=== PATIENT | male | born 1955 | race African-American/Black ===

== ENCOUNTER 2017-09-20 12:51 | Emergency (ER) | payer OTHER ==
[~2017-09-20] VITALS: Ht 182.9 cm; Wt 126.1 kg
--- NOTE | 2017-09-20 13:10 | EKG ---
[address] [address] Test Date: 2017-09-20 Test Time: 13:05:26 Pat Name: AARON KIM Department: Room: Gender: M [employer]: : 1955 Requested By: GARRY RUFFIN Order Number: [id number] Reading MD: Ephraim Thompson MD Measurements Intervals [place] Rate: 74 P: 56 ND: 180 QRS: 21 QRSD: 86 T: 20 QT: 410 QTc: 461 Interpretive Statements SINUS RHYTHM QRS(T) CONTOUR ABNORMALITY CONSISTENT WITH INFERIOR INFARCT PROBABLY OLD ST & T ABNORMALITY, CONSIDER RECENT HIGH LATERAL MYOCARDIAL OR PERICARDIAL DAMAGE Electronically Signed On 09-21-2017 10:19:29 CDT by Ephraim Thompson MD
--- NOTE | 2017-09-20 13:12 | RAD ---
RS Compliance Statement: One or more of the following individualized dose reduction techniques were utilized for this examination: 1. Automated exposure control 2. Adjustment of the mA and/or kV according to patient size 3. Use of iterative reconstruction technique CT head without contrast 09/20/2017 12:54 PM INDICATION: Syncope COMPARISON: None available TECHNIQUE: Multiple axial CT images of the head were obtained from skull base through the vertex without intravenous contrast. FINDINGS: Head: Ventricles, sulci and basal cisterns are within normal limits. Low attenuation the periventricular white matter is suggestive of mild chronic small vessel ischemic changes. There is no hydrocephalus. Hopkins-white matter differentiation is normal. There is no acute intracranial hemorrhage. There is no mass, mass effect or midline shift. Posterior fossa is normal in appearance. Visualized portions of the orbits are normal. Paranasal sinuses are well aerated. Mastoid air cells are well aerated. Scalp and calvaria are normal. IMPRESSION: No acute intracranial hemorrhage. Low-attenuation in the periventricular white matter is suggestive of chronic small vessel ischemic changes. Critical results were conveyed to Dr. Mijares at 1:04 PM on 09/20/[address] Desai. Electronically signed by: Meagan Desai MD (09/20/2017 1:08 PM) [facility]
[2017-09-20] MEDS ORDERED: IV NORMAL SALINE 50ML 50 ML IV ONE (13:15)
[2017-09-20] MEDS ORDERED: ALTEPLASE IV SCH (13:15)
[2017-09-20] MEDS ORDERED: ALTEPLASE IV ONE (13:15)
--- NOTE | 2017-09-20 13:24 | RAD ---
RS Compliance Statement: One or more of the following individualized dose reduction techniques were utilized for this examination: 1. Automated exposure control 2. Adjustment of the mA and/or kV according to patient size 3. Use of iterative reconstruction technique CT cervical spine without contrast 09/20/2017 12:54 PM INDICATION: Syncope with fall. COMPARISON: None available TECHNIQUE: Multiple axial CT images of the cervical spine were obtained without intravenous contrast. Coronal and sagittal reformats are provided. FINDINGS: Alignment of the cervical spine is normal. Skull base is intact. Craniocervical junction is normal in appearance. Atlantoaxial articulation is normal. Vertebral body heights are maintained without evidence for acute fracture. There is a posterior disc osteophyte complex at C6-C7 with moderate uncovertebral joint disease and mild to moderate facet arthropathy resulting in order to severe right and moderate left neuroforaminal stenosis. There is mild spinal canal stenosis. There is to moderate disc height loss at C3-C4 and C6-C7. Mild anterior marginal osteophytosis is noted, most prominent at C6-C7. There is no prevertebral soft tissue swelling. Thyroid gland is normal in appearance. Visualized portions of the lung apices are normal without evidence for suspicious pulmonary nodule or infiltrate. IMPRESSION: No acute fracture or malalignment of the cervical spine. There is mild cervical spondylosis. Electronically signed by: Meagan Desai MD (09/20/2017 1:20 PM) [facility]
[2017-09-20 13:28] LABS: BASO # 0.2 x10^3/uL (0.0-0.2); BASO % 1 % (0-3); EOS # 0.3 x10^3/uL (0.0-0.7); EOS % 2 % (0-3); HEMATOCRIT 41.7 % (39.0-53.0); HEMOGLOBIN 14.1 g/dL (13.0-17.5); LYMPH # 1.7 x10^3/uL (1.0-4.8); LYMPH % 15 % (24-48); MEAN CORPUSCULAR HEMOGLOBIN 31 pg (25-35); MEAN CORPUSCULAR HGB CONC 34 g/dL (31-37); MEAN CORPUSCULAR VOLUME 91 fL (79-100); MONO # 0.9 x10^3/uL (0.0-1.1); MONO % 7 % (0-9); NEUT % 75 % (31-73); PLATELET COUNT 248 x10^3/uL (140-400); RED CELL DISTRIBUTION WIDTH 13.6 % (11.5-14.5)
--- NOTE | 2017-09-20 13:37 | PHYS DOC ---
Past History Past Medical History: Hypotension Smoking: Non-smoker Adult General Chief Complaint Chief Complaint: NEURO SYMPTOMS/DEFICITS HPI HPI 62-year-old male patient with history of hypertension had left facial and upper extremity numbness 3 days ago and was admitted to the [facility] with negative CT and MRI of the head. Patient was discharged home today and walked without problem. Patient was on his computer and his heard a bump at 1225 and found him unresponsive on the floor. 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 Patient stated he had loss of consciousness off and on. EMS reported that he was alert and bradycardic with heart rate of 20 to 40s with left facial droop and left upper and lower extremity weakness. Patient brought in as a code stroke to the emergency room. Patient has a slurred speech and denies chest pain and shortness of breath, nausea vomiting, headache. Review of Systems Review of Systems Constitutional: Denies fever or chills [] Eyes: Denies change in visual acuity, redness, or eye pain [] HENT: Denies nasal congestion or sore throat [] Respiratory: Denies cough or shortness of breath [] Cardiovascular: No additional information not addressed in HPI [] GI: Denies abdominal pain, nausea, vomiting, bloody stools or diarrhea [] : Denies dysuria or hematuria [] Musculoskeletal: Denies back pain or joint pain [] Integument: Denies rash or skin lesions [] Neurologic: Denies headache, reports focal weakness and sensory changes [] Endocrine: Denies polyuria or polydipsia [] All other systems were reviewed and found to be within normal limits, except as documented in this note. Current Medications Current Medications Current Medications Medications (Trade) Dose Ordered Sig/Rommel Start Time Stop Time Status Last Admin Dose Admin Alteplase, Recombinant 0 ml @ 0 mls/hr Q1H 09/20/17 13:15 09/20/17 13:17 DC Sodium Chloride 50 ml @ 0 mls/hr 1X ONCE 09/20/17 13:15 09/20/17 13:17 DC Allergies Allergies Allergies Coded Allergies Type Severity Reaction Last Updated Verified No Known Drug Allergies 09/20/17 No Physical Exam Physical Exam Constitutional: Well developed, well nourished, mild distress, non-toxic appearance. [] HENT: Normocephalic, atraumatic, oropharynx moist, no oral exudates, nose normal, left facial droop with subjective paresthesia. [] Eyes: PERRLA, EOMI, conjunctiva normal, no discharge. [] Neck: Normal range of motion, no tenderness, supple, no stridor. [] Cardiovascular:Heart rate regular rhythm, no murmur [] Lungs & Thorax: Bilateral breath sounds clear to auscultation [] Abdomen: Bowel sounds normal, soft, no tenderness, no masses, no pulsatile masses. [] Skin: Warm, dry, no erythema, no rash. [] Back: No tenderness, no CVA tenderness. [] Extremities: No tenderness, no cyanosis, no clubbing, ROM intact, no edema. [] Neurologic: Alert and oriented X 3, slurred speech with left facial and upper and lower extremity weakness, subjective paresthesias in left side, NIHS scale of 11 at arrival of patient to ER Psychologic: Affect normal, judgement normal, mood normal. [] Current Patient Data Lab Results Laboratory Tests Test 09/20/17 13:12 White Blood Count 12.0 x10^3/uL (4.0-11.0) H Red Blood Count 4.60 x10^6/uL (4.30-5.70) Hemoglobin 14.1 g/dL (13.0-17.5) Hematocrit 41.7 % (39.0-53.0) Mean Corpuscular Volume 91 fL (79-100) Mean Corpuscular Hemoglobin 31 pg (25-35) Mean Corpuscular Hemoglobin Concent 34 g/dL (31-37) Red Cell Distribution Width 13.6 % (11.5-14.5) Platelet Count 248 x10^3/uL (140-400) Neutrophils (%) (Auto) 75 % (31-73) H Lymphocytes (%) (Auto) 15 % (24-48) L Monocytes (%) (Auto) 7 % (0-9) Eosinophils (%) (Auto) 2 % (0-3) Basophils (%) (Auto) 1 % (0-3) Neutrophils # (Auto) 9.0 x10^3uL (1.8-7.7) H Lymphocytes # (Auto) 1.7 x10^3/uL (1.0-4.8) Monocytes # (Auto) 0.9 x10^3/uL (0.0-1.1) Eosinophils # (Auto) 0.3 x10^3/uL (0.0-0.7) Basophils # (Auto) 0.2 x10^3/uL (0.0-0.2) EKG EKG EKG interpreted by me. EKG at 1305 showed normal sinus rhythm at rate of 74, poor R-wave progress in anteroseptal leads, no acute ST and T-wave abnormalities [] Radiology/Procedures Radiology/Procedures [][address] [address] IMAGING REPORT Signed PATIENT: AARON KIM ACCOUNT: [id number] : 1955 LOCATION: ER AGE: 62 SEX: M EXAM STATUS: REG ER ORD. PHYSICIAN: GARRY RUFFIN MD REASON: code stroke PROCEDURE: CHEST AP ONLY CHEST AP ONLY Clinical indications: syncope, code stroke COMPARISON: None available. Findings: No acute lung infiltrate or pleural effusion or pulmonary edema or lung mass or pneumothorax is seen. The heart size, pulmonary vasculature, mediastinum and both talat are unremarkable. Impression: No acute radiographic abnormality is seen. Electronically signed by: Checo Martins MD (09/20/2017 1:42 PM) [id number] DICTATED AND SIGNED BY: CHECO MARTINS MD DATE: 09/20/17 1341 CC: GARRY RUFFIN MD; PCP,NO ~ [address] [place] [id number] IMAGING REPORT Signed PATIENT: AARON KIM ACCOUNT: [id number] : 1955 LOCATION: ER AGE: 62 SEX: M EXAM STATUS: PRE ER ORD. PHYSICIAN: GARRY RUFFIN MD REASON: SYNCOPE PROCEDURE: CT CERVICAL SPINE WO CONTRAST PQRS Compliance Statement: One or more of the following individualized dose reduction techniques were utilized for this examination: 1. Automated exposure control 2. Adjustment of the mA and/or kV according to patient size 3. Use of iterative reconstruction technique CT cervical spine without contrast 09/20/2017 12:54 PM INDICATION: Syncope with fall. COMPARISON: None available TECHNIQUE: Multiple axial CT images of the cervical spine were obtained without intravenous contrast. Coronal and sagittal reformats are provided. FINDINGS: Alignment of the cervical spine is normal. Skull base is intact. Craniocervical junction is normal in appearance. Atlantoaxial articulation is normal. Vertebral body heights are maintained without evidence for acute fracture. There is a posterior disc osteophyte complex at C6-C7 with moderate uncovertebral joint disease and mild to moderate facet arthropathy resulting in order to severe right and moderate left neuroforaminal stenosis. There is mild spinal canal stenosis. There is to moderate disc height loss at C3-C4 and C6-C7. Mild anterior marginal osteophytosis is noted, most prominent at C6-C7. There is no prevertebral soft tissue swelling. Thyroid gland is normal in appearance. Visualized portions of the lung apices are normal without evidence for suspicious pulmonary nodule or infiltrate. IMPRESSION: No acute fracture or malalignment of the cervical spine. There is mild cervical spondylosis. Electronically signed by: Lois Ahmadi MD (09/20/2017 1:20 PM) [id number] DICTATED AND SIGNED BY: LOIS AHMADI MD DATE: 09/20/17 [id number] CC: GARRY RUFFIN MD ~ [address] [address] IMAGING REPORT Signed PATIENT: AARON KIM ACCOUNT: [id number] : 1955 LOCATION: ER AGE: 62 SEX: M EXAM STATUS: PRE ER ORD. PHYSICIAN: GARRY RUFFIN MD REASON: SYNCOPE PROCEDURE: CT CODE STROKE HEAD WO PQRS Compliance Statement: One or more of the following individualized dose reduction techniques were utilized for this examination: 1. Automated exposure control 2. Adjustment of the mA and/or kV according to patient size 3. Use of iterative reconstruction technique CT head without contrast 09/20/2017 12:54 PM INDICATION: Syncope COMPARISON: None available TECHNIQUE: Multiple axial CT images of the head were obtained from skull base through the vertex without intravenous contrast. FINDINGS: Head: Ventricles, sulci and basal cisterns are within normal limits. Low attenuation the periventricular white matter is suggestive of mild chronic small vessel ischemic changes. There is no hydrocephalus. Hopkins-white matter differentiation is normal. There is no acute intracranial hemorrhage. There is no mass, mass effect or midline shift. Posterior fossa is normal in appearance. Visualized portions of the orbits are normal. Paranasal sinuses are well aerated. Mastoid air cells are well aerated. Scalp and calvaria are normal. IMPRESSION: No acute intracranial hemorrhage. Low-attenuation in the periventricular white matter is suggestive of chronic small vessel ischemic changes. Critical results were conveyed to Dr. Ruffin at 1:04 PM on 09/20/[address] Ahmadi. Electronically signed by: Lois Ahmadi MD (09/20/2017 1:08 PM) [place] [id number] DICTATED AND SIGNED BY: LOIS AHMADI MD DATE: 09/20/17 1303 CC: GARRY RUFFIN MD ~ Course & Med Decision Making Course & Med Decision Making Pertinent Labs and Imaging studies reviewed. (See chart for details) Evaluation of patient in ER showed 62-year-old male patient with history of recent TIA presented to ER with left site weakness and numbness that started at 1225. Patient had unremarkable CT had andNIH scale of 11. Patient was a candidate for TPA and after consulting Dr. Stevens on-call neurologist at 1308 planned to start TPA. BP, ended to admit patient to ICU but his requesting transferred to [facility]. on-call stroke specialist accepted patient to [facility] at 1321. At 1324 before starting TPA patient was re-evaluated and was able to raise his left arm for more than 10 seconds and did not have slurred speech anymore. Patient had a very mild facial droop with subjective paresthesia. TPA was ordered and [facility] team was informed at 1329 and agreed with plan of care. Patient still wanted transferred to transferred to [facility] with NIHS scale of 1. Dragon Disclaimer Dragon Disclaimer This electronic medical record was generated, in whole or in part, using a voice recognition dictation system. Departure Departure: Impression: Primary Impression: Transient ischemic attack, acute Disposition: 02 XFER SHT-TRM HOSP ([facility] at 1322) Condition: GUARDED Critical Care Time Critical care time was [65] minutes exclusive of procedures. GARRY RUFFIN MD Sep 20, 2017 13:37
[2017-09-20 13:43] LABS: ALBUMIN 3.3 g/dL (3.4-5.0); ALBUMIN/GLOBULIN RATIO 0.8 (1.0-1.7); CALCIUM 9.5 mg/dL (8.5-10.1); CREATININE 1.3 mg/dL (0.7-1.3); GFR 55.6; TOTAL BILIRUBIN 0.5 mg/dL (0.2-1.0); TOTAL PROTEIN 7.4 g/dL (6.4-8.2)
--- NOTE | 2017-09-20 13:46 | RAD ---
CHEST AP ONLY Clinical indications: syncope, code stroke COMPARISON: None available. Findings: No acute lung infiltrate or pleural effusion or pulmonary edema or lung mass or pneumothorax is seen. The heart size, pulmonary vasculature, mediastinum and both talat are unremarkable. Impression: No acute radiographic abnormality is seen. Electronically signed by: Jamie Martins MD (09/20/2017 1:42 PM) [id number]
[2017-09-20 13:59] VITALS: BP 134/93
== END 2017-09-20 14:00 | disposition short-term general hospital (02) ==
LOC: ER 12:51
DX: G45.9 Transient cerebral ischemic attack, unspecified (principal)
CPT/HCPCS: 36415; 70450; 71045; 72125; 80053; 82947; 84484; 85025; 85610; 85730; 93005; 99291-25